=== PATIENT | female | born 1980 | race Caucasian/White ===

== ENCOUNTER 2020-06-29 18:30 | Emergency (ER) | payer MEDICAID ==
[~2020-06-29] VITALS: Ht 172.7 cm; Wt 105.0 kg
[2020-06-29 18:33] VITALS: BP 184/105
[2020-06-29] MEDS ORDERED: HYDROcodone/acetaminophen 5mg/325mg tablet PO ONE (19:35)
[2020-06-29] MEDS ORDERED: HYDR-3965 PO (19:37)
[2020-06-29] MEDS ORDERED: CLIN150C2 PO (19:37)
== END 2020-06-29 19:50 | disposition home or self-care (01) ==
LOC: ER 18:31
DX: K04.7 Periapical abscess without sinus (principal); K02.9 Dental caries, unspecified; Z88.8 Allergy status to other drugs, medicaments and biological substances; Z79.2 Long term (current) use of antibiotics; Z79.899 Other long term (current) drug therapy
CPT/HCPCS: 99283